=== PATIENT | female | born 1980 | race Caucasian/White ===

== ENCOUNTER 2019-03-27 01:25 | Emergency (ER) | payer SELFPAY ==
[~2019-03-27] VITALS: Ht 157.5 cm; Wt 75.0 kg
[2019-03-27 01:35] VITALS: BP 110/75
--- NOTE | 2019-03-27 01:35 | NUR ---
TO BED # 02 AMBULATORY
--- NOTE | 2019-03-27 01:45 | NUR ---
pt arrived to ed c/o spider bite to left hand x 0000 today. rates pain 7/10 and describes it as numbness and tingling. left hand shows redness, swelling. no drianage noted. vss. hands are cold to touch. cms intact on bilat arms. radial pulses +2 bilat present. no obvious deformity noted on extrem. nka. no pmh.
--- NOTE | 2019-03-27 02:10 | NUR ---
ermd at bedside eval pt.
[2019-03-27] MEDS ORDERED: DOXYCYCLINE 100 MG CAP PO STA (03:34)
[2019-03-27] MEDS ORDERED: DOXYCYCLINE 100 MG CAP PO ONE (03:45)
--- NOTE | 2019-03-27 04:09 | NUR ---
Patient discharged with v/s stable. Written and verbal after care instructions given and explained. Patient alert, oriented and verbalized understanding of instructions. Ambulatory with steady gait. All questions addressed prior to discharge. ID band removed. Patient advised to follow up with PMD. Rx of benadryl and doxycycline given. Patient educated on indication of medication including possible reaction and side effects. Opportunity to ask questions provided and answered.
[2019-03-27 04:10] VITALS: BP 120/71
== END 2019-03-27 04:09 | disposition home or self-care (01) ==
LOC: MED 01:25
DX: T63.301A Toxic effect of unspecified spider venom, accidental (unintentional), initial encounter (principal); Y92.89 Other specified places as the place of occurrence of the external cause
CPT/HCPCS: 81025; 99284; Q0163

== ENCOUNTER 2021-06-19 20:36 | Emergency (ER) | payer MEDICAID, OTHER ==
[~2021-06-19] VITALS: Ht 152.4 cm; Wt 76.7 kg
[2021-06-19 20:42] VITALS: BP 145/88
--- NOTE | 2021-06-19 21:00 | NUR ---
PATIENT BIB SELF FOR C/O L SIDED FACIAL PAIN D/T SWLLING OF THE UPPERLIP, AND CHEEK. PER PATIENT CHIPPED TOOTH X 1 YEAR AGO AND BELIVES MAY BE INFECTED.
[2021-06-19] MEDS ORDERED: KETOROLAC 30 MG/ML VIAL IVP ONE (21:15)
[2021-06-19] MEDS ORDERED: AMPICILLIN/SULBACTAM 3 GM in NACL 0.9% 100 ML IV ONE (21:20)
[2021-06-19 21:37] LABS: BASOPHILS % (AUTO) 0.1 % (0.0-2.0); EOSINOPHILS % (AUTO) 0.1 % (0.0-4.0); HEMATOCRIT 38.2 % (36-48); HEMOGLOBIN 12.9 g/dL (12.0-16.0); LYMPHOCYTES # (AUTO) 1.9 K/uL (2.5-16.5); MEAN CORPUSCULAR HEMOGLOBIN 29 pg (27-31); MEAN CORPUSCULAR HGB CONC 34 g/dL (33-37); MEAN CORPUSCULAR VOLUME 84.9 fL (80-94); MONOCYTES # (AUTO) 0.3 K/uL (0.8-1.0); MONOCYTES % (AUTO) 2.2 % (1.7-9.3); NEUTROPHILS # (AUTO) 13.4 K/uL (1.8-7.7); NEUTROPHILS % (AUTO) 85.6 % (42.2-75.2); PLATELET COUNT (AUTO) 306 K/uL (140-450); RED BLOOD CELL COUNT(AUTO) 4.51 MIL/uL (4.20-5.40); RED CELL DISTRIBUTION WIDTH 13.7 % (11.6-13.7); WHITE BLOOD COUNT (AUTO) 15.7 K/uL (4.8-10.8)
[2021-06-19] MEDS ORDERED: AMPICILLIN/SULBACTAM 3 GM VIAL ONE (21:42)
[2021-06-19 21:49] LABS: ANION GAP 6.1 (8-16); CREATININE 0.6 mg/dL (0.6-1.3); POTASSIUM 3.1 mmol/L (3.5-5.1)
--- NOTE | 2021-06-19 22:35 | NUR ---
RETURNED FROM CT
[2021-06-19] MEDS ORDERED: IBUP-2218 PO (23:26)
[2021-06-19] MEDS ORDERED: AMOX-1000 PO (23:26)
--- NOTE | 2021-06-20 00:22 | NUR ---
Patient discharged with v/s stable. Written and verbal after care instructions given and explained. Patient alert, oriented and verbalized understanding of instructions. Ambulatory with steady gait. All questions addressed prior to discharge. ID band removed. Patient advised to follow up with PMD. Rx of AUGMENTIN,IBUPROFEN given. Patient educated on indication of medication including possible reaction and side effects. Opportunity to ask questions provided and answered.
== END 2021-06-20 00:09 | disposition home or self-care (01) ==
LOC: MED 20:36
DX: K04.7 Periapical abscess without sinus (principal); Z20.822 Contact with and (suspected) exposure to COVID-19; Z79.899 Other long term (current) drug therapy
CPT/HCPCS: 36415; 70488; 80048; 81025; 85025; 87426; 96365; 96375; 99284; J0295; J1885; Q9967